=== PATIENT | female | born 1975 | race American Indian/Alaskan Native ===

== ENCOUNTER 2019-03-13 05:46 | Emergency (ER) | payer OTHER ==
[2019-03-13 06:18] LABS: Basophils % (Auto) 0.3 % (0.0-1.8); Eosinophils % (Auto) 0.1 % (0.0-4.3); Hematocrit 38.8 % (30.3-42.9); Hemoglobin 13.2 gm/dl (10.1-14.3); Lymphocytes # (Auto) 0.7 K/mm3 (1.2-5.4); Lymphocytes % (Auto) 14.8 % (13.4-35.0); Mean Corpuscular HGB Conc 34 % (30-34); Mean Corpuscular Volume 93 fl (79-97); Monocytes # (Auto) 0.4 K/mm3 (0.0-0.8); Platelet Count 186 K/mm3 (140-440); Red Blood Count 4.16 M/mm3 (3.65-5.03); Red Cell Distribution Width 13.9 % (13.2-15.2)
--- NOTE | 2019-03-13 06:20 | XRay Report ---
CHEST 1 VIEW 03/13/2019 5:59 AM INDICATION / CLINICAL INFORMATION: Chest Pain. COMPARISON: None available. FINDINGS: SUPPORT DEVICES: None. HEART / MEDIASTINUM: No significant abnormality. LUNGS / PLEURA: There is mild bibasilar atelectasis. The lungs are otherwise clear. No significant pl eural effusion. No pneumothorax. ADDITIONAL FINDINGS: No significant additional findings. IMPRESSION: Mild bibasilar atelectasis. Signer Name: Pankaj Martino MD Signed: 03/13/2019 6:15 AM Workstation Name: [email or web address]
[2019-03-13 06:32] LABS: BUN/Creatinine Ratio 13; Blood Urea Nitrogen 8 mg/dL (7-17); Calcium 9.4 mg/dL (8.4-10.2); Hemolysis Index 2
[2019-03-13] MEDS ORDERED: ACETAMINOPHEN 325 MG TAB PO ONE (09:09)
[2019-03-13] MEDS ORDERED: ONDANSETRON 4 MG/2 ML INJ IV ONE ×2 (09:09→17:20)
[2019-03-13] MEDS ORDERED: FAMOTIDINE 20 MG/2 ML INJ IV ONE ×2 (09:09→09:14)
[2019-03-13] MEDS ORDERED: ACETAMINOPHEN 325 MG TAB ONE (09:13)
[2019-03-13] MEDS ORDERED: ONDANSETRON 4 MG/2 ML INJ ONE ×2 (09:13→17:23)
[2019-03-13] MEDS ORDERED: ASPIRIN 81 MG TAB CHEW PO ONE (09:51)
[2019-03-13] MEDS ORDERED: cloNIDine 0.1 MG TAB PO ONE ×3 (09:52→17:00)
[2019-03-13 10:45] LABS: Albumin 4.7 g/dL (3.9-5); Bilirubin,Direct 0.3 mg/dL (0-0.2)
--- NOTE | 2019-03-13 10:51 | Nuclear Medicine Report ---
NUCLEAR MEDICINE VENTILATION/PERFUSION LUNG SCAN INDICATION / CLINICAL INFORMATION: chest pain. TECHNIQUE: 16.3 mCi of Xe-133 were given by inhalation. 5.5 mCi of Tc-99m MAA were given by IV. COMPARISON: Chest radiograph dated 03/13/2019. FINDINGS: VENTILATION: No significant ventilation defects. PERFUSION: No significant perfusion defects. ADDITIONAL FINDINGS: None. IMPRESSION: Low probability for pulmonary embolism. Signer Name: Kasi George Jr, MD Signed: 03/13/2019 10:47 AM Workstation Name: [id number]
[2019-03-13] MEDS ORDERED: SODIUM CHLORIDE 0.9% 1000 ML 1,000 ML IV ONE (11:26)
[2019-03-13] MEDS ORDERED: MORPHINE 2 MG/1 ML INJ IV ONE (11:26)
--- NOTE | 2019-03-13 11:31 | Emergency Department Report ---
ED Chest Pain HPI - General Chief Complaint: Chest Pain Stated Complaint: CHEST PAIN Time Seen by Provider: 03/13/19 09:50 Source: patient, EMS Mode of arrival: Stretcher Limitations: No Limitations - History of Present Illness Initial Comments: Patient reports chest pain sudden onset this morning that awoke her from her sleep. Reports symptoms associated with nausea and vomiting. Denies any symptoms yesterday. Reports hx of HTN and CVA. Reports she had left sided weakness approximately 3 months ago while in [place] which resolved after a 3 day hospital stay and that she was discharged with medication for HTN and aspirin. Denies any symptoms from stroke today. Denies trauma. Denies drugs/alcohol. Reports substernal chest pain, burning sensation, nonradiating, no palliation/provocation. Reports did not take her HTN medication today MD Complaint: chest pain Severity scale (0 -10): 7 - Related Data Home Medications Medication Instructions Recorded Confirmed Last Taken Metoprolol 50 mg PO BID 03/13/19 03/13/19 Unknown Allergies Allergy/AdvReac Type Severity Reaction Status Date / Time iodine Allergy Unknown Verified 03/13/19 09:28 povidone-iodine Allergy Unknown Verified 03/13/19 09:28 [From Betadine] soap [From Betadine] Allergy Unknown Verified 03/13/19 09:28 Heart Score - HEART Score History: Slightly suspicious EKG: Non-specific Age: 45-65 Risk factors: 1-2 risk factors Troponin: < normal limit HEART Score: 3 ED Review of Systems ROS: Stated complaint: CHEST PAIN Other details as noted in HPI Other: GENERAL: No weight change, fatigue, fever, chills, or night sweats SKIN: No changes in skin or hair, no itching, no rashes, no jaundice HEAD: No trauma EYES: No blurriness, tearing, itching, acute visual loss, conjunctival discolor ation, or scleral icterus EARS: No hearing loss, tinnitus, vertigo, or earache NOSE: No rhinorrhea, stuffiness, sneezing, itching, or epistaxis MOUTH: No bleeding gums, hoarseness, sore throat, or swelling CARDIAC: Chest pain. No new murmur, palpitations, dyspnea on exertion, orthopnea, PND, or edema RESPIRATORY: No shortness of breath, wheeze, cough, sputum production, hemoptysis GI: N/v. No abdominal pain, dysphagia, diarrhea, constipation, hematemesis, melena, hematochezia URINARY: No frequency, urgency, polyuria, dysuria, hematuria, or incontinence MUSCULOSKELETAL: No muscle weakness, joint stiffness, decrease in range of motion, redness, swelling NEUROLOGIC: No headache, syncope, loss of sensation, numbness, tingling, tremors, weakness, paralysis, seizures HEMATOLOGIC: No anemia, easy bruising, bleeding, petechiae, or purpura ENDOCRINE: No hot or cold intolerance, sweating, polyuria, polydipsia or, polyphagia no thyroid problems ED Past Medical Hx - Past Medical History Previous Medical History?: Yes Hx Hypertension: Yes Hx CVA: Yes - Surgical History Past Surgical History?: No - Social History Smoking Status: Never Smoker Substance Use Type: None - Medications Home Medications: Home Medications Medication Instructions Recorded Confirmed Last Taken Type Metoprolol 50 mg PO BID 03/13/19 03/13/19 Unknown History ED Physical Exam - General Limitations: No Limitations - Other Other exam information: GENERAL: Patient in no acute distress HEAD: Normocephalic, atraumatic EYES: PERRLA, EOM intact, no scleral icterus, no conjunctival hemorrhage, visual sibley and acuity wnl NOSE: No tenderness, discharge, sinus tenderness MOUTH: No erythema, bleeding, exudate HEART: Tachycardia, no murmur, S1-S2 are auscultated, no edema, pulses are symmetric LUNGS: No respiratory distress. Bilateral breath sounds, No tachypnea, No retractions, No wheezing, rales, rhonchi ABDOMEN: Normal bowel sounds, abdomen soft, no tenderness, no rebound, no guarding, no distention, no masses, no CVA tenderness MUSCULOSKELETAL: Normal joint range of motion, no redness, no swelling, no tenderness NEUROLOGIC: GCS 15, Alert and Oriented x3, Cranial nerves intact, normal sensation, normal strength, no cerebellar deficit, NIHSS 0 SKIN: Skin is warm and dry, no wounds, no rashes ED Course Vital Signs 03/13/19 03/13/19 03/13/19 05:56 07:15 09:00 Temperature 98.4 F 98.8 F Pulse Rate 117 H 108 H 106 H Respiratory 18 16 16 Rate Blood Pressure 150/89 Blood Pressure 167/115 186/115 [Left] O2 Sat by Pulse 100 100 100 Oximetry 03/13/19 03/13/19 03/13/19 10:11 11:06 12:30 Temperature 99 F Pulse Rate 64 102 H 100 H Respiratory 16 16 Rate Blood Pressure 180/103 Blood Pressure 143/101 161/114 [Left] O2 Sat by Pulse 100 100 Oximetry 03/13/19 03/13/19 03/13/19 13:01 13:42 14:30 Temperature 98.2 F Pulse Rate 100 H 94 H 106 H Respiratory 16 16 Rate Blood Pressure 159/105 Blood Pressure 146/106 168/107 [Left] O2 Sat by Pulse 100 100 Oximetry 03/13/19 03/13/19 03/13/19 15:47 16:28 17:11 Temperature 98.4 F Pulse Rate 96 H 96 H 90 Respiratory 16 Rate Blood Pressure 158/112 160/112 Blood Pressure 172/118 [Left] O2 Sat by Pulse 100 Oximetry 03/13/19 17:43 Temperature Pulse Rate 90 Respiratory 16 Rate Blood Pressure Blood Pressure 158/105 [Left] O2 Sat by Pulse 100 Oximetry ED Medical Decision Making - Lab Data Result diagrams: 03/13/19 06:07 03/13/19 06:07 Laboratory Results - last 24 hr 03/13/19 03/13/19 03/13/19 06:07 06:07 06:07 WBC 4.6 RBC 4.16 Hgb 13.2 Hct 38.8 MCV 93 MCH 32 MCHC 34 RDW 13.9 Plt Count 186 Lymph % (Auto) 14.8 Gonzales % (Auto) 9.0 H Eos % (Auto) 0.1 Baso % (Auto) 0.3 Lymph # 0.7 L Gonzales # 0.4 Eos # 0.0 Baso # 0.0 Seg Neutrophils % 75.8 H Seg Neutrophils # 3.5 D-Dimer 247.48 H Sodium 140 Potassium 3.8 Chloride 99.4 Carbon Dioxide 21 L Anion Gap 23 BUN 8 Creatinine 0.6 L Estimated GFR > 60 BUN/Creatinine Ratio 13 Glucose 107 H Calcium 9.4 Total Bilirubin Direct Bilirubin Indirect Bilirubin AST ALT Alkaline Phosphatase Troponin T < 0.010 Total Protein Albumin Albumin/Globulin Ratio Lipase 03/13/19 03/13/19 09:59 09:59 WBC RBC Hgb Hct MCV MCH MCHC RDW Plt Count Lymph % (Auto) Gonzales % (Auto) Eos % (Auto) Baso % (Auto) Lymph # Gonzales # Eos # Baso # Seg Neutrophils % Seg Neutrophils # D-Dimer Sodium Potassium Chloride Carbon Dioxide Anion Gap BUN Creatinine Estimated GFR BUN/Creatinine Ratio Glucose Calcium Total Bilirubin 1.10 Direct Bilirubin 0.3 H Indirect Bilirubin 0.8 AST 448 H ALT 171 H Alkaline Phosphatase 112 Troponin T Total Protein 7.8 Albumin 4.7 Albumin/Globulin Ratio 1.5 Lipase 126 H - EKG Data When compared to previous EKG there are: no significant change - Radiology Data Radiology results: report reviewed - Medical Decision Making Patient comfortable. Reports symptom improvement. Updated with results. Plan discharge with outpatient follow up. Return if any worsening. Critical care attestation.: If time is entered above; I have spent that time in minutes in the direct care of this critically ill patient, excluding procedure time. ED Disposition Clinical Impression: Elevated LFTs, Hypertensive urgency Chest pain Qualifiers: Chest pain type: unspecified Qualified Code(s): R07.9 - Chest pain, unspecified Disposition: - TO HOME OR SELFCARE Is pt being admited?: No Condition: Stable Instructions: Chest Pain (ED), Non-Alcoholic Fatty Liver Disease (ED), Hypertension (ED) Additional Instructions: Elevated LFTs on Laboratory Studies Referrals: JEZ MEDELLIN DO [Staff Physician] - 2-3 Days HILARY ARORA MD [Staff Physician] - 2-3 Days [facility] [Provider Group] - 2-3 Days Time of Disposition: 15:08
--- NOTE | 2019-03-13 14:19 | Ultrasound Report ---
ULTRASOUND ABDOMEN, LIMITED INDICATION: Elevated LFTs COMPARISON: None available. FINDINGS: Pancreas: Normal. Abdominal Aorta: Normal. IVC: Normal. Liver: The liver is mildly echogenic but normal in size. No intrinsic hepatic lesions. Gallbladder: Normal. Bile ducts: Normal. Common Bile Duct measures 4 mm. Right Kidney: Normal. Free fluid: None. Additional Findings: None. IMPRESSION: 1. Mild hepatic steatosis. Otherwise unremarkable abdominal ultrasound Signer Name: Ramesh Goldman MD Signed: 03/13/2019 2:14 PM Workstation Name: [email or web address]
[2019-03-13 17:44] VITALS: BP 158/105
== END 2019-03-13 17:54 | disposition home or self-care (01) ==
LOC: ED 05:46
DX: I16.0 Hypertensive urgency (principal); I10 Essential (primary) hypertension; R94.5 Abnormal results of liver function studies; R07.89 Other chest pain; Z86.73 Personal history of transient ischemic attack (TIA), and cerebral infarction without residual deficits; Z79.899 Other long term (current) drug therapy; Z88.8 Allergy status to other drugs, medicaments and biological substances; Z91.041 Radiographic dye allergy status
CPT/HCPCS: 36415; 71045; 76705; 78582; 80048; 80076; 83690; 84484; 85025; 85379; 93005; 93010; 96374; 96375; 96376; 99285; A9540; A9558; J2270; J2405; J7030